=== PATIENT | female | born 1995 | race Caucasian/White ===

== ENCOUNTER → 2017-04-15 | Outpatient (CLI) | payer OTHER ==
[2017-04-15 12:13] LABS: ALKALINE PHOSPHATASE 50 U/L (46-116); ALT/SGPT 24 U/L (14-59); AST/SGOT 13 U/L (15-37); BILIRUBIN TOTAL 0.45 mg/dL (0.20-1.00); CALCIUM 9.2 mg/dL (8.5-10.1); CARBON DIOXIDE 24.3 mmol/L (21-32); CHLORIDE SERUM 104 mmol/L (98-107); CHOLESTEROL 187 mg/dL (<200); CHOLESTEROL/HDL RATIO 3.8; CREATININE SERUM 0.6 mg/dL (0.6-1.0); GFR1 > 60 mL/min; GLUCOSE SERUM 74 mg/dL (74-106); HDL CHOLESTEROL 49 mg/dL (40-60); POTASSIUM SERUM 3.6 mmol/L (3.5-5.1); SODIUM SERUM 139 mmol/L (136-145); TOTAL PROTEIN, SERUM 7.9 g/dL (6.4-8.2); TRIGLYCERIDES 88 mg/dL (<150)
[2017-04-15 12:22] LABS: BASOPHIL % 0.5 % (0-2); PLATELET COUNT 264 x10^3mcL (130-400); RED CELL DISTRIBUTION WIDTH 14.1 % (11.5-14.5)
[2017-04-15 12:25] LABS: FREE T4 1.18 ng/dL (0.76-1.46); FREE THYROXINE INDEX 3.6 ug/dL (1.4-4.5); T4(THYROXINE) 11.9 ug/dL (4.7-13.3)
[2017-04-15 13:21] LABS: T3 TOTAL 1.43 ng/mL
== END | disposition home or self-care (01) ==
LOC: LB 09:30
DX: Z00.00 Encounter for general adult medical examination without abnormal findings (principal); Z11.3 Encounter for screening for infections with a predominantly sexual mode of transmission
CPT/HCPCS: 84439; 86694; 87491; 87591

== ENCOUNTER → 2017-06-13 | Outpatient (CLI) | payer OTHER | END | disposition home or self-care (01) | LOC: LB 15:25 | DX: R12 Heartburn (principal) ==

== ENCOUNTER → 2018-04-22 | Outpatient (CLI) | payer OTHER ==
[2018-04-22 11:44] LABS: BASOPHIL % 0.4 % (0-2); PLATELET COUNT 224 x10^3mcL (130-400); RED CELL DISTRIBUTION WIDTH 13.1 % (11.5-14.5)
[2018-04-22 12:08] LABS: T3 TOTAL 1.34 ng/mL
[2018-04-22 12:13] LABS: FREE T4 1.06 ng/dL (0.76-1.46); FREE THYROXINE INDEX 3.7 ug/dL (1.4-4.5); T4(THYROXINE) 10.4 ug/dL (4.7-13.3)
[2018-04-22 21:39] LABS: ALKALINE PHOSPHATASE 58 U/L (46-116); ALT/SGPT 25 U/L (14-59); AST/SGOT 27 U/L (15-37); BILIRUBIN TOTAL 0.36 mg/dL (0.20-1.00); CALCIUM 9.4 mg/dL (8.5-10.1); CARBON DIOXIDE 27.2 mmol/L (21-32); CHLORIDE SERUM 102 mmol/L (98-107); CREATININE SERUM 0.7 mg/dL (0.6-1.0); GFR1 > 60 mL/min; GLUCOSE SERUM 68 mg/dL (74-106); HDL CHOLESTEROL 48 mg/dL (40-60); POTASSIUM SERUM 4.2 mmol/L (3.5-5.1); SODIUM SERUM 139 mmol/L (136-145); TOTAL PROTEIN, SERUM 7.6 g/dL (6.4-8.2); TRIGLYCERIDES 125 mg/dL (<150)
[2018-04-22 21:40] LABS: CHOLESTEROL 202 mg/dL (<200); CHOLESTEROL/HDL RATIO 4.2
[2018-04-23 10:52] LABS: RAPID PLASMA REAGIN Non Reactive (Non Reactive); VITAMIN D 25-HYDROXY 35.6 ng/mL (30.0-100.0)
== END | disposition home or self-care (01) ==
LOC: LB 11:08
DX: Z00.00 Encounter for general adult medical examination without abnormal findings (principal); Z11.3 Encounter for screening for infections with a predominantly sexual mode of transmission
CPT/HCPCS: 84439; 86694; 87491; 87591